=== PATIENT | female | born 1985 | race Caucasian/White ===

== ENCOUNTER 2018-08-24 04:07 | Inpatient (IN) | payer OTHER ==
[2018-08-24] MEDS ORDERED: Lactated Ringers 1000 ML Bag* 1,000 ML IV ONE (05:39)
--- NOTE | 2018-08-24 05:52 | HP ---
General Information - Reason for Visit spontaneous rupture of membranes - General Information Maternal Age: 32 Grav: 3 Para: 1 SAB: 0 IEA: 1 Estimated Due Date: 08/21/18 Determined By: LMP Maternal Blood Type and Rh: O Positive - Results this Serology/RPR Result: Non-Reactive Rubella Result: Immune HBsAg Result: Negative HIV Result: Negative GBS Culture Result: Negative Past Medical History Delivery History: See Records Pertinent Past Medical History: See Records Pertinent Past Surgical History: See Records Pertinent Family History: See Records - Antepartal Records Antepartal Records: Reviewed, Complicated by: - desires trial of labor after section Review of Systems Constitutional: Comfortable CV Complaint: No Respiratory: Shortness of Breath: No Gastrointestinal: No Nausea/Vomiting Genitourinary: Leaking Fluid, No Bleeding Musculoskeletal: No Complaint Neurological: No Headache Movement: Normal Exam Allergies/Adverse Reactions: Allergies No Known Allergies Allergy (Verified 08/24/18 04:22) T:97.7 BP 106/77 P: 99 - Measurements Height: 5 ft 3 in Weight: 145 lb Weight in lbs: 145.734715 Body Mass Index (BMI): 25.7 Pre- Weight: 123 lb Weight Gained This : 22 lbs and 0 ozs - Exam Breast: Breast Exam Deferred CVA: No CVA Tenderness Extremities: No Edema Heart: Normal Rhythm/Heart Sounds HEENT: No Significant Findings Lungs: Clear Bilaterally Rectal: Rectal Exam Deferred Reflexes: DTR 2+ Thyroid: No Thyromegaly - Abdominal Exam Abdomen Exam: Non-Tender - Ultrasound/Biophysical Profile Ultrasound Status: Not Done Targeted Exam Findings Cervical Exam: 2cm Effacement: 70% Station: -3 Presenting Part: Vertex Membrane Status: Leaking Amniotic Fluid Evaluation: Gross Rupture EFM Findings - External Monitor Findings Baseline Heart Rate: 140 External Monitor Findings: Accelerations Present, No Pattern of Variable or Late Decelerations, Variability Moderate Contractions: Regular - q 6 ' Assessment/Plan - Obstetrical Risk Factors Obstetrical Risk Factors: Previous C/Section in Labor - Plan Plan: IV Hydration - Reviewed with patient risks associated with trial of labor after section. Pt accepts risks to include but not limited to < 2 % risk of uterine rupture, need for blood products, need for hyterectomy, poor outcomes including cerebral palsy. Pt accepts these risks and desires trial of labor after section., Admit - Anticipate Vaginal Delivery
[2018-08-24] MEDS ORDERED: Lactated Ringers 1000 ML Bag* 1,000 ML IV SCH ×2 (06:00→22:00)
[2018-08-24] MEDS ORDERED: ceFOXitin 2 GM IVPREMIX* 2 GM/50 ML BAG IVPB ONE (19:37)
[2018-08-24] MEDS ORDERED: Sodium Citrate/Citric Acid* 15 ML UDC PO ONE (19:37)
[2018-08-24] MEDS ORDERED: ceFOXitin 2 GM IVPREMIX* 2 GM/50 ML BAG ONE (19:39)
[2018-08-24] MEDS ORDERED: Sodium Citrate/Citric Acid* 15 ML UDC ONE (19:39)
[2018-08-24] MEDS ORDERED: Lidocaine 2% PF * 5 ML VIAL ONE (19:52)
[2018-08-24] MEDS ORDERED: OXYTOCIN* 10 UNITS/ML 1 ML VIAL ONE (19:52)
[2018-08-24] MEDS ORDERED: Bupivacaine 0.5% SDV PF* 30ML VIAL ONE (19:53)
[2018-08-24] MEDS ORDERED: Morphine PF AMP (0.5MG/ML)* 5 MG/10 ML AMP ONE (19:53)
[2018-08-24] MEDS ORDERED: Bupivacaine-MPF SPINAL* 7.5 MG/ML - 2ML AMP ONE (19:53)
[2018-08-24] MEDS ORDERED: Phenylephrine IV* 40 MCG/ML 10 ML SYRINGE ONE (20:16)
[2018-08-24] MEDS ORDERED: fentaNYL* 50 MCG/ML 2 ML VIAL (100 MCG VIAL) IV PRN (20:40)
[2018-08-24] MEDS ORDERED: Naloxone* 0.4 MG/ML 1 ML VIAL IV PRN ×2 (20:40→20:42)
[2018-08-24] MEDS ORDERED: diPHENhydraMINE IV* 50 MG/ML 1 ml VIAL (BENADRYL) IV PRN ×2 (20:42)
[2018-08-24] MEDS ORDERED: HYDROcodone/ACETAMIN 5-325 MG* 1 TAB PO PRN ×2 (20:42)
[2018-08-24] MEDS ORDERED: Nalbuphine* 10 MG/ML 1 ML VIAL IV PRN (20:42)
[2018-08-24] MEDS ORDERED: DiMENhydriNATE IV* 50 MG/ML VIAL IV PUSH PRN (20:42)
[2018-08-24] MEDS ORDERED: Acetaminophen TAB* 325 MG PO PRN (20:42)
[2018-08-24] MEDS ORDERED: PROCHLORPERAZINE INJ 5 MG/ML 2 ML VIAL IV PRN (20:42)
[2018-08-24] MEDS ORDERED: Scopolamine 1.5 mg* PATCH TRANSDERM PRN (20:42)
[2018-08-24] MEDS ORDERED: Ketorolac INJ* 30 MG/ML 1 ML VIAL ONE (20:48)
[2018-08-24] MEDS ORDERED: Famotidine IV* 10 MG/ML 2 ML (20 mg) ONE (20:48)
[2018-08-24] MEDS ORDERED: Witch Hazel PAD* JAR TOPICAL PRN (21:12)
[2018-08-24] MEDS ORDERED: Dibucaine 1% 28.35 GM TUBE PR PRN (21:12)
[2018-08-24] MEDS ORDERED: Ibuprofen TAB* 600 MG PO PRN (21:12)
[2018-08-24] MEDS ORDERED: Zolpidem TAB* 5 MG PO PRN (21:12)
[2018-08-24] MEDS ORDERED: Glycerin ADULT SUPP PR PRN (21:12)
--- NOTE | 2018-08-24 22:38 | OP ---
DATE OF OPERATION: 08/24/18 - ROOM #102 DATE OF : 83 SURGEON: Gunnar Daniel MD NIGHT SUPERVISOR: Dr. Swift ANESTHESIA: Spinal. PRE-OP DIAGNOSES: at 40 weeks, prior section, child of labor with arrest of dilation and descent. POST-OP DIAGNOSES: at 40 weeks, prior section, child of labor with arrest of dilation and descent. OPERATIVE PROCEDURE: Repeat low transverse section. ESTIMATED BLOOD LOSS: 600 cc. SPECIMEN SENT TO PATHOLOGY: Cord blood. FLUIDS: She received 1700 cc of IV crystalloid fluid. URINE OUTPUT: 100 cc of clear urine. FINDINGS: Delivery of a male infant with a nuchal cord x1 over clear fluid, weighing 6 pounds 9 ounces with Apgars of 9 and 9. The placenta was grossly intact with a 3 vessel cord noted. The uterus, adnexa, bowel, and bladder were all within normal limits and there were no complications. DESCRIPTION OF PROCEDURE: The patient was taken to operating room where she was identified. She was placed on the operating table where a spinal anesthetic was obtained without difficulty. She was then placed in the supine position with a leftward tilt, prepped and draped in the normal sterile fashion. A Pfannenstiel skin incision was then made with a knife and carried through to the underlying layer of fascia. The fascia was then nicked in the midline and extended laterally with curved Anton scissors. The fascia was then grasped superiorly and inferiorly with Reji clamps and dissected off sharply from the rectus muscle. The rectus muscle was in the midline bluntly. The peritoneum was then identified, grasped with pickups, entered sharply with Metzenbaum scissors, and extended superiorly, inferiorly and sharply. A bladder blade was inserted into the patient's abdomen and a bladder flap was created using Metzenbaum scissors over which the bladder blade was then reinserted. A low transverse skin incision was then made with a knife and extended laterally with bandage scissors. The amniotic sac was ruptured. The fluid was noted to be clear. The infant's head was then grasped and delivered atraumatically after nuchal cord x1 was reduced. The rest of the infant's body was then delivered. The cord was clamped and cut, the was handed off to a waiting desk pen set assembler. The cord bloods were then obtained. The placenta was removed manually. The uterus was then exteriorized, cleared of all clot and debris using moist laparotomy sponges. The uterine incision was then closed using 0 Polysorb suture in a running locked fashion with a second imbricating layer of 0 Polysorb suture with good hemostasis noted. The uterus was then returned to the patient's abdomen. The gutters were cleared of all clot and debris with irrigation and moist sponges. Irrigation fluid was suctioned. The sponges were removed from the patient's abdomen. An Interceed was then placed over the uterine incision to prevent future adhesions. At this point, we proceeded to close the peritoneum using 3-0 Polysorb suture in a running fashion. The fascia was closed using 0 Polysorb suture in a running fashion and the skin was closed with a 4-0 Monocryl subcuticular stitch. The patient tolerated the procedure well. Sponge, lap, and needle counts were correct x2. She was then transferred to the recovery room area in stable condition. [id number]/[facility] #: [id number] SUNG
[2018-08-24] MEDS: Ondansetron INJ* 2 MG/ML VIAL IV PRN (22:58)
[2018-08-25] MEDS: Ketorolac INJ* 30 MG/ML 1 ML VIAL IV PRN ×3 (02:52→15:11)
[2018-08-25 07:23] LABS: ABS Basophils 0 10^3/ul (0-0.2); ABS Eosinophils 0.1 10^3/ul (0-0.6); ABS Lymphocytes 1.8 10^3/ul (1.0-4.8); ABS Monocytes 0.6 10^3/ul (0-0.8); ABS Neutrophils 9.6 10^3/ul (1.5-7.7); ABS Nucleated RBC 0 10^3/ul; Eosinophil % 0.7 %; Hematocrit 32 % (35-47); Hemoglobin 10.4 g/dl (12.0-16.0); Lymphocyte % 14.6 %; Mean Corpuscular HGB Conc 33 g/dl (31-36); Mean Corpuscular Hemoglobin 27 pg (27-31); Mean Corpuscular Volume 83 fL (80-97); Mean Platelet Volume 7.8 fL (7.4-10.4); Nucleated Red Blood Cells % 0; Platelet Count 268 10^3/ul (150-450); Red Blood Count 3.85 10^6/ul (4.00-5.40); Red Cell Distribution Width 14 % (10.5-15); White Blood Count 12.1 10^3/ul (3.5-10.8)
[2018-08-25] MEDS: Ondansetron INJ* 2 MG/ML VIAL IV PRN (08:56)
[2018-08-25] MEDS ORDERED: Ferrous Gluconate TAB* 324 MG TAB PO SCH (09:00)
[2018-08-25] MEDS: Simethicone TAB* 80 MG TAB.CHEW PO SCH ×4 (09:39→21:02)
[2018-08-25] MEDS: Docusate CAP* 100 MG PO SCH ×3 (09:39→21:02)
[2018-08-25] MEDS ORDERED: Acetaminophen TAB* 325 MG PO PRN (12:01)
[2018-08-25] MEDS ORDERED: oxyCODONE/Acetamin 5/325 MG* TAB PO PRN (12:01)
[2018-08-25] MEDS: Ibuprofen TAB* 600 MG PO PRN (21:01)
[2018-08-26] MEDS: Ibuprofen TAB* 600 MG PO PRN ×3 (03:07→15:35)
[2018-08-26] MEDS: oxyCODONE/Acetamin 5/325 MG* TAB PO PRN ×2 (06:42→19:41)
[2018-08-26] MEDS: Simethicone TAB* 80 MG TAB.CHEW PO SCH ×3 (09:24→20:37)
[2018-08-26] MEDS: Docusate CAP* 100 MG PO SCH ×3 (09:24→20:37)
[2018-08-27] MEDS: Ibuprofen TAB* 600 MG PO PRN ×2 (03:22→08:49)
[2018-08-27] MEDS: oxyCODONE/Acetamin 5/325 MG* TAB PO PRN ×2 (05:33→10:25)
[2018-08-27 08:07] VITALS: BP 119/71
[2018-08-27] MEDS: Simethicone TAB* 80 MG TAB.CHEW PO SCH ×2 (08:50→11:57)
[2018-08-27] MEDS: Docusate CAP* 100 MG PO SCH (08:50)
[2018-08-27] MEDS ORDERED: Scopolamine PATCH Remove* 1 NOTE MISC PATCH OFF PRN (20:46)
== END 2018-08-27 12:24 | disposition home or self-care (01) | DRG 788 ==
LOC: MCHOBOUT 04:07 → MCHOB 04:25
PROVIDERS: ADMIT Obstetrics & Gynecology; ATTEND Obstetrics & Gynecology
PROC: 0JN80ZZ Release Abdomen Subcutaneous Tissue and Fascia, Open Approach (ICD-10-PCS; 2018-08-24)
PROC: 4A1HXCZ Monitoring of Products of Conception, Cardiac Rate, External Approach (ICD-10-PCS; 2018-08-24)
PROC: 10D00Z1 Extraction of Products of Conception, Low, Open Approach (ICD-10-PCS; principal; 2018-08-24 19:55)
DX: O34.211 Maternal care for low transverse scar from previous cesarean delivery (principal); N85.8 Other specified noninflammatory disorders of uterus; O69.81X0 Labor and delivery complicated by cord around neck, without compression, not applicable or unspecified; O48.0 Post-term pregnancy; Z37.0 Single live birth; Z3A.40 40 weeks gestation of pregnancy; O62.1 Secondary uterine inertia
CPT/HCPCS: 36415; 85025; A9270-GY; J0694; J1885; J2405; J2590

== ENCOUNTER 2022-02-12 06:01 | Inpatient (IN) ==
[~2022-02-12 06:01] MED LIST: Buffered Lidocaine 1% SYRIN 1 ml INTRADERM ONE; Lactated Ringers 1000 ml BAG 1,000 ML IV SCH; Sodium Citrate/Citric Acid LIQ 15 ML UDC PO ONE
[2022-02-12 06:51] LABS: ABS Eosinophils 0.1 10^3/ul (0-0.6); ABS Lymphocytes 1.6 10^3/ul (1.0-4.8); ABS Monocytes 0.5 10^3/ul (0-0.8); ABS Neutrophils 5.6 10^3/ul (1.5-7.7); Eosinophil % 1.9 %; Hematocrit 36 % (35-47); Hemoglobin 12.4 g/dL (12.0-16.0); Lymphocyte % 20.3 %; Mean Corpuscular HGB Conc 34 g/dL (31-36); Mean Corpuscular Hemoglobin 29 pg (27-31); Mean Corpuscular Volume 84 fL (80-97); Mean Platelet Volume 7.8 fL (7.4-10.4); Nucleated Red Blood Cells % 0.1; Platelet Count 232 10^3/uL (150-450); Red Blood Count 4.28 10^6 /uL (3.70-4.87); Red Cell Distribution Width 19 % (10-15); White Blood Count 7.9 10^3/uL (3.5-10.8)
[2022-02-12] MEDS ORDERED: ceFOXitin 2 GM PREMIX 50 ML IVPB ONE (07:15)
[2022-02-12] MEDS ORDERED: Oxytocin 10 UNITS/ML 1 ML VIAL ONE (08:22)
[2022-02-12] MEDS ORDERED: Scopolamine 1 mg/72hr PATCH ONE (08:22)
[2022-02-12] MEDS ORDERED: Phenylephrine 40 mcg/mL 10mL (400mcg) SYRINGE ONE ×3 (08:22→09:37)
[2022-02-12] MEDS ORDERED: Morphine PF AMP (0.5MG/ML) 5 MG/10 ML AMP ONE (08:22)
[2022-02-12] MEDS ORDERED: Ondansetron 4 mg VIAL 2 MG/ML 2 ml VIAL IV PRN ×2 (08:37→09:40)
[2022-02-12] MEDS ORDERED: Naloxone 0.4 mg VIAL 0.4 mg/ml 1 ml VIAL IV PRN ×2 (08:37→09:40)
[2022-02-12] MEDS ORDERED: fentaNYL 100 mcg/2 ml 50 MCG/ML VIAL IV PRN (08:37)
[2022-02-12] MEDS ORDERED: Ondansetron 4 mg VIAL 2 MG/ML 2 ml VIAL ONE (09:42)
[2022-02-12] MEDS ORDERED: Acetaminophen IV 1 GM/100ML 100 ML IV ONE (10:52)
[2022-02-12 12:41] LABS: Urine Benzodiazepine Screen None Detected (None Detect); Urine Opiates Screen None Detected (None Detect)
[2022-02-12 12:42] LABS: Urine Appearance Clear; Urine Bilirubin Negative (Negative); Urine Blood Negative (Negative); Urine Color Yellow; Urine Glucose Negative (Negative); Urine Ketones Negative (Negative); Urine Nitrite Negative (Negative); Urine Protein Negative (Negative); Urine Specific Gravity 1.009 (1.002-1.030); Urine Urobilinogen Negative (Negative)
[2022-02-12] MEDS ORDERED: Glycerin ADULT 2.4 gm SUPP PR PRN (13:56)
[2022-02-12] MEDS ORDERED: Dibucaine 1% OINT 28.35 GM TUBE PR PRN (13:56)
[2022-02-12] MEDS ORDERED: Witch Hazel PAD JAR TOPICAL PRN (13:56)
[2022-02-12] MEDS ORDERED: Lactated Ringers 1000 ml BAG 1,000 ML IV SCH (14:00)
[2022-02-13 06:30] LABS: ABS Basophils 0.1 10^3/ul (0-0.2); ABS Eosinophils 0.2 10^3/ul (0-0.6); ABS Lymphocytes 1.3 10^3/ul (1.0-4.8); ABS Monocytes 0.5 10^3/ul (0-0.8); ABS Neutrophils 8.8 10^3/ul (1.5-7.7); Eosinophil % 1.9 %; Hematocrit 37 % (35-47); Hemoglobin 11.9 g/dL (12.0-16.0); Lymphocyte % 11.8 %; Mean Corpuscular HGB Conc 33 g/dL (31-36); Mean Corpuscular Hemoglobin 28 pg (27-31); Mean Corpuscular Volume 86 fL (80-97); Mean Platelet Volume 7.8 fL (7.4-10.4); Platelet Count 229 10^3/uL (150-450); Red Blood Count 4.28 10^6 /uL (3.70-4.87); Red Cell Distribution Width 19 % (10-15); White Blood Count 10.8 10^3/uL (3.5-10.8)
[2022-02-13 20:46] VITALS: BP 102/72
== END 2022-02-14 13:11 | disposition home or self-care (01) | DRG 785 ==
LOC: MCHOB 06:01
PROVIDERS: ADMIT Obstetrics & Gynecology; ATTEND Obstetrics & Gynecology